=== PATIENT | female | born 1985 | race Caucasian/White ===

== ENCOUNTER 2019-09-11 18:59 | Emergency (ER) | payer SELFPAY ==
--- NOTE | 2019-09-11 20:09 | RAD ---
2 view chest: [09/11/2019] Comparison:None available HISTORY: Cough FINDINGS: Heart and mediastinal contours are grossly unremarkable. No pneumothorax or pleural fluid. No focal consolidation or alveolar edema. IMPRESSION: No acute findings.
== END 2019-09-11 20:20 | disposition home or self-care (01) ==
LOC: ERS 18:59
DX: J20.9 Acute bronchitis, unspecified (principal); J45.909 Unspecified asthma, uncomplicated; F41.9 Anxiety disorder, unspecified
CPT/HCPCS: 71046